=== PATIENT | male | born 1970 | race Hispanic/Latino ===

== ENCOUNTER 2020-02-06 07:08 | Day surgery (SDC) | payer OTHER ==
--- OUTSIDE RECORDS SUMMARY | 2020-02-06 07:11 | XMS REPORT | Continuity of Care Document ---
:[address] [facility] t Address [address] [place] [address] Care Team Providers Name Role Phone Luis Miguel DONALDSON Attending Clinician Problems This patient has no known problems. Allergies, Adverse Reactions, Alerts This patient has no known allergies or adverse reactions. Medications This patient has no known medications. Procedures This patient has no known procedures. Encounters Start End Encounter Admission Attending Care Care Encounter Source Date/Time Date/Time Type Type Clinicians Facility Department ID 2019-03-26 2019-03-26 [facility] Luis Miguel [facility] [id number] 19:56:37 20:40:31 Care [facility] [id number] Surgical [id number] Special [id number] [facility] Results This patient has no known results.
[2020-02-06] MEDS ORDERED: Ringers Lactate 1,000 ML IV ONE ×2 (07:34→09:08)
[2020-02-06] MEDS ORDERED: CEFAZOLIN/SWI 1gm 1 GM/10 ML SYR ONE (07:34)
[2020-02-06] MEDS ORDERED: MIDAZOLAM HCL 2 MG/2 ML INJ ONE (07:51)
[2020-02-06] MEDS ORDERED: LIDOCAINE 2% MPF 5 ML VIAL ONE (07:51)
[2020-02-06] MEDS ORDERED: propofoL 200 MG/20 ML VIAL IV ONE (07:51)
[2020-02-06] MEDS ORDERED: FENTANYL CITR 100 MCG/2 ML ONE ×2 (07:51→08:55)
[2020-02-06] MEDS ORDERED: ROCURONIUM 50 MG/5 ML VIAL IV ONE (07:52)
[2020-02-06] MEDS ORDERED: BUPIVACA 0.25%/EPI 0.0005%/PF 30 ML VIAL ONE (07:56)
[2020-02-06] MEDS ORDERED: dexAMETHasone 10 MG/ML VIAL ONE (08:36)
[2020-02-06] MEDS ORDERED: KETOROLAC 30 MG/ML INJ ONE (08:36)
[2020-02-06] MEDS ORDERED: ONDANSETRON 4 MG/2 ML VIAL ONE ×2 (08:54→10:03)
[2020-02-06] MEDS ORDERED: GLYCOPYRROLATE 0.2 MG/ML SYR ONE (08:57)
[2020-02-06] MEDS ORDERED: NEOSTIGMINE 1 MG/ML -5 ML ONE (09:01)
--- NOTE | 2020-02-06 09:08 | P.OP ---
Preoperative diagnosis: Ventral Abdominal Wall Hernia Postoperative diagnosis: Ventral Abdominal Wall Hernia Primary procedure: Laparoscopic Ventral Hernia Repair with Mesh Anesthesia: GETA + Local Estimated blood loss: <5cc Specimen: None Findings: 6 cm hernia defect wtih omentum entrapped Complications: None Transferred to: Recovery Room Condition: Good
[2020-02-06] MEDS: HYDROMORPHONE HCL 1 MG/ML INJ ONE ×2 (09:35→09:43)
[2020-02-06 10:03] VITALS: O2SAT 97
[2020-02-06] MEDS ORDERED: HYDROMORPHONE HCL 1 MG/ML INJ ONE (10:04)
[2020-02-06 10:28] VITALS: BP 167/77; TEMP 97.6
[2020-02-06] MEDS ORDERED: HYDROCODONE/APAP 5/325 MG TAB ONE (10:45)
--- NOTE | 2020-02-06 21:12 | OP ---
Date of Procedure: 02/06/2020 Surgeon: Byron Danielle MD, Preoperative Diagnosis: Ventral abdominal hernia. Postoperative Diagnosis: Ventral abdominal hernia. Procedure Performed: Laparoscopic ventral hernia repair with mesh. Anesthesia: General endotracheal plus local with 0.25% Marcaine with epinephrine. Estimated Fluid Loss: Less than 5 mL. Specimens: None. Findings: 6 cm hernia defect with omentum entrapped. Complications: None. Disposition: Transferred to recovery room in good condition. Implants: Bard round Ventralight ST 15 cm mesh with Echo Positioning System. Procedure In Detail: After informed consent was obtained, the patient was brought to the operating r oom, prepped and draped in the usual sterile fashion. After adequate anesthesia was achieved, a left upper quadrant area was anesthetized with 0.25% Marcaine, sharply incised, a 5 mm trocar was introdu carolyn in the abdomen without evidence of complication. Insufflation was obtained to 15 mmHg at this ti me. There was no injury to vital structure upon entering the abdomen. Additional trocar placed in t he left lower quadrant, this similarly anesthetized, sharply incised. A 12 mm trocar was introduced in the abdomen under direct visualization without evidence of complication. The patient was then pos itioned in the neutral slight head-down position. LigaSure device was used to gently dissect omentum out of the hernia defect in the periumbilical area on the ventral abdominal wall using combination o f LigaSure device and blunt dissection. After the omentum was returned to the normal anatomic positi on, no additional hemostatic measures required. I sized the hernia defect and found to be approximat artem 6 to 7 cm round. I therefore brought in the Endo Stitch with V-Loc and then ran the V-Loc suture in a running fashion to close the hernia defect. After the hernia defect was closed, a 15 [address] Bard [address] mesh was brought into the large trocar and centrally positioned. The absorbable fixati on tacks, SorbaFix, were then used to circumferentially secure the mesh to the anterior abdominal wal l after the balloon deployment system was engaged. I then removed the deployment system and secured the mesh to the anterior abdominal wall using absorbable fixation tacks. Approximately 70 tacks were used with good apposition of the tissue in a double crown type fashion. Good hemostasis was achieve d. No additional hemostatic measures required. The patient was then desufflated and the mesh was fo und to be good apposition to the abdominal wall. I then removed the 12 mm trocar and closed the troc ar site using a Alo-Rhonda suture passer with 0 Vicryl in an interrupted fashion with good appro ximation of tissues. The patient tolerated the procedure well without evidence of complication, bergeron sferred to PACU in good condition. All counts were correct at the end of the case. MATY/NANDINI Voice ID: [id number] Report ID: [id number]
== END 2020-02-06 11:28 | disposition home or self-care (01) ==
LOC: OR 07:08
PROVIDERS: ATTEND Surgery
PROC: 0WUF4JZ Supplement Abdominal Wall with Synthetic Substitute, Percutaneous Endoscopic Approach (ICD-10-PCS; principal; 2020-02-06 08:00)
DX: K42.9 Umbilical hernia without obstruction or gangrene (principal); G47.33 Obstructive sleep apnea (adult) (pediatric); K21.9 Gastro-esophageal reflux disease without esophagitis; E66.9 Obesity, unspecified; Z68.32 Body mass index [BMI] 32.0-32.9, adult; N53.9 Unspecified male sexual dysfunction; F98.8 Other specified behavioral and emotional disorders with onset usually occurring in childhood and adolescence; Z11.59 Encounter for screening for other viral diseases; F17.200 Nicotine dependence, unspecified, uncomplicated
CPT/HCPCS: 88302; 49652; U0002; J2704; J2250; J3010 ×2; J1100; J1170 ×2; J2710; J0690; J7120 ×2; J2405 ×2